=== PATIENT | female | born 1970 | race Caucasian/White ===

== ENCOUNTER 2018-08-26 09:32 | Emergency (ER) | payer OTHER ==
[~2018-08-26] VITALS: Ht 152.4 cm; Wt 97.5 kg
[~2018-08-26 09:32] MED LIST: ATI2I PO; PROINH; ZES10 PO
[2018-08-26 09:39] VITALS: Ht 152.4 cm; Wt 97.5 kg
[2018-08-26 11:10] VITALS: BP 180/108
== END 2018-08-26 11:10 | disposition home or self-care (01) ==
LOC: ED 09:32
DX: S63.501A Unspecified sprain of right wrist, initial encounter (principal); S43.401A Unspecified sprain of right shoulder joint, initial encounter; S93.401A Sprain of unspecified ligament of right ankle, initial encounter; J45.909 Unspecified asthma, uncomplicated; I10 Essential (primary) hypertension; Z91.013 Allergy to seafood; V49.88XA Car occupant (driver) (passenger) injured in other specified transport accidents, initial encounter; Y93.I9 Activity, other involving external motion; Y92.413 State road as the place of occurrence of the external cause; Y99.8 Other external cause status
CPT/HCPCS: Q0092